=== PATIENT | female | born 1940 | race Caucasian/White ===

== ENCOUNTER 2017-09-03 13:05 | Emergency (ER) | payer MEDICARE, BC ==
[2017-09-03 13:29] VITALS: BP 146/65
[2017-09-03] MEDS ORDERED: Ondansetron 4 MG/2 ML SDV IVPUSH ONE (13:32)
[2017-09-03] MEDS ORDERED: Sodium Chloride 0.9% 1,000 ML IV ONE (13:32)
--- NOTE | 2017-09-03 13:43 | EDM.PDOC ---
ED HPI GENERAL MEDICAL PROBLEM - General Chief Complaint: Gastrointestinal Problem Stated Complaint: VOMITING Time Seen by Provider: 09/03/17 13:32 Source of Information: Reports: Patient History Limitations: Reports: No Limitations - History of Present Illness INITIAL COMMENTS - FREE TEXT/NARRATIVE: 77 YO WF presents to ER complaining of intractable vomiting which began 3 hours ago. Pt reports she woke this am feeling well, and had some breakfast. Pt states so after she began to feel nauseated and started to vomit. Pt unable to hold down any fluids at this time. Pt denies any abdominal pain, no chest pain, no shortness of breath, no dizziness. Pt denies any sick contacts, no fever/ chills. Onset: Today Duration: Hour(s): (3) Location: Reports: Generalized Severity: Mild Improves with: Reports: None Worsens with: Reports: Eating Associated Symptoms: Reports: Nausea/Vomiting. Denies: Chest Pain, Fever/Chills , Shortness of Breath, Syncope - Related Data Allergies Allergy/AdvReac Type Severity Reaction Status Date / Time ciprofloxacin [From Cipro] Allergy Headache Verified 09/03/17 13:29 ciprofloxacin HCl Allergy Headache Verified 09/03/17 13:29 [From Cipro] Home Meds: Home Meds Aspirin 1 tab PO DAILY 11/01/15 [History] Simvastatin [Zocor] 40 mg PO DAILY 11/01/15 [History] amLODIPine [Norvasc] 5 mg PO DAILY 11/01/15 [History] Potassium Chloride [Klor-Con M20] 20 meq PO DAILY #14 tab.er.prt 11/03/15 [Rx] Cephalexin [Keflex] 500 mg PO Q6HR #28 cap 09/03/17 [Rx] Ondansetron [Zofran ODT] 4 mg PO Q8H #10 tab.dis 09/03/17 [Rx] Past Medical History HEENT History: Reports: Hard of Hearing, Impaired Vision Cardiovascular History: Reports: High Cholesterol, Other (See Below) Other Cardiovascular History: carotid artery stenosis Gastrointestinal History: Reports: None VP PROJECT History: Reports: , Spontaneous - Infectious Disease History Infectious Disease History: Reports: Chicken Pox, Measles, Mumps, Pertussis ( Whooping Cough), Rubella - Past Surgical History Female Surgical History: Reports: D&C, Hysterectomy, Salpingo-Oophorectomy, Tubal Ligation Social & Family History - Tobacco Use Smoking Status *Q: Never Smoker Second Hand Smoke Exposure: No - Alcohol Use Days Per Week of Alcohol Use: 1 Number of Drinks Per Day: 1 Total Drinks Per Week: 1 - Recreational Drug Use Recreational Drug Use: No - Living Situation & Occupation Living situation: Reports: Occupation: Retired ED ROS GENERAL - Review of Systems Review Of Systems: See Below Constitutional: Reports: No Symptoms HEENT: Reports: No Symptoms Respiratory: Reports: No Symptoms Cardiovascular: Reports: No Symptoms Endocrine: Reports: No Symptoms GI/Abdominal: Reports: Nausea, Vomiting : Reports: No Symptoms Musculoskeletal: Reports: No Symptoms Skin: Reports: No Symptoms Neurological: Reports: No Symptoms Psychiatric: Reports: No Symptoms Hematologic/Lymphatic: Reports: No Symptoms Immunologic: Reports: No Symptoms ED EXAM, GENERAL - Physical Exam Exam: See Below Exam Limited By: No Limitations General Appearance: Alert, WD/WN, No Apparent Distress Head: Atraumatic, Normocephalic Neck: Normal Inspection, Supple, Non-Tender, Full Range of Motion Respiratory/Chest: No Respiratory Distress, Lungs Clear, Normal Breath Sounds, No Accessory Muscle Use, Chest Non-Tender Cardiovascular: Normal Peripheral Pulses, Regular Rate, Rhythm, No Edema, No Gallop, No JVD, No Murmur, No Rub GI/Abdominal: Normal Bowel Sounds, Soft, Non-Tender, No Organomegaly, No Distention, No Abnormal Bruit, No Mass Back Exam: Normal Inspection, Full Range of Motion, NT Extremities: Normal Inspection, Normal Range of Motion, Non-Tender, Normal Capillary Refill, No Pedal Edema Neurological: Alert, Oriented, CN II-XII Intact, Normal Cognition, Normal Gait, Normal Reflexes, No Motor/Sensory Deficits Psychiatric: Normal Affect, Normal Mood Skin Exam: Warm, Dry, Intact, Normal Color, No Rash Lymphatic: No Adenopathy EKG INTERPRETATION EKG Date: 09/03/17 Time: 13:58 Rhythm: NSR Rate (Beats/Min): 68 [place]: Normal P-Wave: Present QRS: Normal ST-T: Normal QT: Normal Comparison: NA - No Prior EKG Course - Vital Signs Last Recorded V/S: Last Vital Signs Temp 35.8 C 09/03/17 13:25 Pulse 86 09/03/17 13:25 Resp 18 09/03/17 13:25 BP 146/65 H 09/03/17 13:25 Pulse Ox 96 09/03/17 13:25 - Orders/Labs/Meds Orders: Active Orders 24 hr Category Date Time Status EKG Documentation Completion [RC] ASDIRECTED Care 09/03/17 13:32 Ordered Sodium Chloride 0.9% @ 999 MLS/HR (1000ml) Med 09/03/17 13:32 Ordered Sodium Chloride 0.9% [Normal Saline] 1,000 ml IV .BOLUS EKG 12 Lead [EK] Routine Ther 09/03/17 13:32 Ordered Medication Orders Sodium Chloride (Normal Saline) 1,000 mls @ 999 mls/hr IV .BOLUS ONE Stop: 09/03/17 14:32 Last Admin: 09/03/17 13:48 Dose: 999 mls/hr Labs: Laboratory Tests 09/03/17 09/03/17 09/03/17 Range/Units 13:10 13:10 13:40 WBC 12.2 H (5.0-10.0) 10^3/uL RBC 4.61 (3.80-5.50) 10^6/uL Hgb 13.1 (12.0-16.0) g/dL Hct 41.2 (37.0-47.0) % MCV 89.4 (82.0-92.0) fL MCH 28.5 (27.0-31.0) pg MCHC 31.9 L (32.0-36.0) g/dL RDW 12.9 (11.5-14.5) % Plt Count 211 (150-300) 10^3/uL MPV 9.4 (7.4-10.4) fL Neut % (Auto) 89.9 H (50.0-70.0) % Lymph % (Auto) 7.4 L (20.0-40.0) % [place] % (Auto) 1.9 L (2.0-8.0) % Eos % (Auto) 0.2 L (1.0-3.0) % Baso % (Auto) 0.6 (0.0-1.0) % Neut # (Auto) 11.0 H (2.5-7.0) 10^3/uL Lymph # (Auto) 0.9 L (1.0-4.0) 10^3/uL [place] # (Auto) 0.2 (0.1-0.8) 10^3/uL Eos # (Auto) 0.0 L (0.1-0.3) 10^3/uL Baso # (Auto) 0.1 (0.0-0.1) 10^3/uL Sodium 142 (136-145) mmol/L Potassium 3.3 (3.3-5.3) mmol/L Chloride 105 (98-115) mmol/L Carbon Dioxide 24.0 (21.0-32.0) mmol/L BUN 13 (6-25) mg/dL Creatinine 0.57 (0.51-1.17) mg/dL Est Cr Clr Drug Dosing 69.11 mL/min Estimated GFR (MDRD) > 60 mL/min Glucose 151 H (70-110) mg/dL Calcium 8.7 (8.7-10.3) mg/dL Total Bilirubin 0.3 (0.2-1.0) mg/dL AST 18 (15-37) U/L ALT 17 (12-78) U/L Alkaline Phosphatase 102 (46-116) IU/L Total Protein 8.1 (6.4-8.2) g/dL Albumin 3.60 (3.00-4.80) g/dL Lipase 60 L (73-393) U/L Specimen Type Urinvoid Urine Color Light yellow (YELLOW) Urine Appearance Cloudy H (CLEAR) Urine pH 7.5 (5.0-9.0) Ur Specific [place] 1.020 (1.005-1.030) Urine Protein Negative (NEGATIVE) mg/dL Urine Glucose (UA) Negative (NEGATIVE) mg/dL Urine Ketones 40 H (NEGATIVE) mg/dL Urine Occult Blood Negative (NEGATIVE) Urine Nitrite Negative (NEGATIVE) Urine Bilirubin Negative (NEGATIVE) Urine Urobilinogen 0.2 (0.2-1.0) E.U./dL Ur Leukocyte Esterase Negative (NEGATIVE) Urine RBC 0-5 /HPF Urine WBC 0-5 /HPF Ur Epithelial Cells Few /LPF Amorphous Sediment Many H (0/HPF) /HPF Urine Bacteria Moderate H (NONE TO FEW) /HPF Meds: Medications Generic Name Dose Route Start Last Admin Trade Name Freq PRN Reason Stop Dose Admin Sodium Chloride 1,000 mls @ 999 mls/hr 09/03/17 13:32 09/03/17 13:48 Normal Saline IV 09/03/17 14:32 999 mls/hr .BOLUS ONE Administration Discontinued Medications Generic Name Dose Route Start Last Admin Trade Name Ran PRN Reason Stop Dose Admin Ondansetron HCl 4 mg 09/03/17 13:32 09/03/17 13:48 Zofran IVPUSH 09/03/17 13:33 4 mg ONETIME ONE Administration Departure - Departure Time of Disposition: 14:32 Disposition: Home, Self-Care 01 Condition: Good Clinical Impression: Vomiting, UTI, Urinary tract infectious disease - Discharge Information Prescriptions: Cephalexin [Keflex] 500 mg PO Q6HR #28 cap Ondansetron [Zofran ODT] 4 mg PO Q8H #10 tab.dis Instructions: Nausea and Vomiting, Adult, [id number], Urinary Tract Infection , Adult Referrals: Steve Dawson MD [Primary Care Provider] - Forms: ED Department Discharge - My Orders Last 24 Hours: My Active Orders 09/03/17 13:32 EKG Documentation Completion [RC] ASDIRECTED Sodium Chloride 0.9% @ 999 MLS/HR (1000ml) Sodium Chloride 0.9% [Normal Saline] 1,000 ml IV .BOLUS EKG 12 Lead [EK] Routine - Assessment/Plan Last 24 Hours: My Active Orders 09/03/17 13:32 EKG Documentation Completion [RC] ASDIRECTED Sodium Chloride 0.9% @ 999 MLS/HR (1000ml) Sodium Chloride 0.9% [Normal Saline] 1,000 ml IV .BOLUS EKG 12 Lead [EK] Routine Assessment:: 1. vomiting 2. urinary tract infection Plan: 1. zofran 4mg ODT Q8 PRN vomiting 2. keflex 500mg PO Q6 x 7 days 3. plenty of fluids 4. follow up in clinic for recheck 5. return to ER for worsening symptoms
[2017-09-03 14:14] LABS: CHLORIDE,CL 105 mmol/L (98-115); SODIUM,NA 142 mmol/L (136-145)
[2017-09-03] MEDS ORDERED: Ondansetron 4 MG Tab.DIS PO PRN (14:34)
[2017-09-03] MEDS ORDERED: Cephalexin 250 MG Cap PO SCH (14:45)
== END 2017-09-03 15:00 | disposition home or self-care (01) ==
LOC: KA.ED 13:05
DX: N39.0 Urinary tract infection, site not specified (principal); R11.2 Nausea with vomiting, unspecified; Z88.8 Allergy status to other drugs, medicaments and biological substances; E78.00 Pure hypercholesterolemia, unspecified
CPT/HCPCS: 80053; 81001; 83690; 85025; 93005; 96361; 96374; 99283; J2405; J7030; A9270-GY

== ENCOUNTER 2020-05-29 08:50 | Emergency (ER) | payer MEDICARE, BC ==
[2020-05-29] MEDS ORDERED: Sodium Chloride 0.9% 1,000 ML ONE (09:32)
[2020-05-29] MEDS ORDERED: Ondansetron 4 MG/2 ML SDV ONE (09:33)
--- NOTE | 2020-05-29 09:44 | CR ---
[id number] RAD/RAD Chest PA or AP 1V EXAM: RAD Chest PA or AP 1V INDICATION: LOW OXYGEN SATS. COMPARISON: None. DISCUSSION: Prominent appearance of the right hilum, nonspecific. Differential diagnosis includes lymphadenopathy versus central vascular congestion. 12 mm left lung base nodule. In addition there is streaky parenchymal opacity in the left lung base. Findings are nonspecific. Contrast-enhanced CT examination of the chest is recommended for further evaluation. If there is contraindication to intravenous iodinated contrast, noncontrast chest CT would also be of benefit. IMPRESSION: As above. En Alva MD 05/29/20 0913 Thank you for allowing us to participate in the care of your patient.
[2020-05-29] MEDS ORDERED: Sodium Chloride 0.9% 1,000 ML IV SCH (09:45)
[2020-05-29] MEDS ORDERED: Ondansetron 4 MG/2 ML SDV IVPUSH ONE (09:45)
--- NOTE | 2020-05-29 09:46 | EDM.PDOC ---
ED HPI GENERAL MEDICAL PROBLEM - General Time Seen by Provider: 05/29/20 09:21 Source of Information: Reports: Patient, Family History Limitations: Reports: No Limitations - History of Present Illness INITIAL COMMENTS - FREE TEXT/NARRATIVE: arrive to the emergency room by her daughters who had a less than 60 second syncopal episode at home. She was diagnosed with Covid-19 last week and she was admitted to the [place] covid Unit on Monday and was discharged on Monday. She was discharged home in care of her daughters. She has been weak has had some weight loss mild nonproductive cough, some shortness of breath with exertion. She does not have any chest pain or acute respiratory distress this time. Her syncopal episode lasted less than 60 seconds (per daughter) which they were able to get her stand back up and put her into a vehicle. She was coming back from the bathroom, she denies bearing down there, she got up, felt increased weakness and her gait was unsteady as where she fell down in the hallway. She does not take any anticoagulants. There is no signs of trauma. - Related Data Allergies Allergy/AdvReac Type Severity Reaction Status Date / Time ciprofloxacin [From Cipro] Allergy Headache Verified 05/29/20 09:15 ciprofloxacin HCl Allergy Headache Verified 05/29/20 09:15 [From Cipro] Home Meds: Home Meds Aspirin 1 tab PO DAILY 11/01/15 [History] Simvastatin [Zocor] 40 mg PO DAILY 11/01/15 [History] amLODIPine [Norvasc] 5 mg PO DAILY 11/01/15 [History] Past Medical History HEENT History: Reports: Hard of Hearing, Impaired Vision Cardiovascular History: Reports: High Cholesterol, Other (See Below) Other Cardiovascular History: carotid artery stenosis Gastrointestinal History: Reports: None Other Gastrointestinal History: current N/V [employer]MENT [employer] History: Reports: , Spontaneous - Infectious Disease History Infectious Disease History: Reports: Chicken Pox, Measles, Mumps, Pertussis (Whooping Cough), Rubella - Past Surgical History Female Surgical History: Reports: D&C, Hysterectomy, Salpingo-Oophorectomy, Tubal Ligation Social & Family History - Family History Family Medical History: Noncontributory - Caffeine Use Caffeine Use: Reports: Coffee - Living Situation & Occupation Living situation: Reports: Occupation: Retired ED ROS GENERAL - Review of Systems Review Of Systems: See Below Constitutional: Reports: Chills, Malaise, Weakness, Fatigue, Weight Loss. De nies: Fever HEENT: Denies: Ear Pain, Rhinitis, Throat Pain Respiratory: Reports: Cough. Denies: Shortness of Breath Cardiovascular: Reports: Dyspnea on Exertion, Syncope, Other (Syncopal episode prior to arrival). Denies: Chest Pain GI/Abdominal: Reports: Nausea. Denies: Abdominal Pain, Diarrhea, Vomiting Musculoskeletal: Reports: Other (Myalgias) Neurological: Reports: Dizziness. Denies: Confusion, Headache, Numbness, Change in Speech Psychiatric: Reports: No Symptoms Hematologic/Lymphatic: Reports: No Symptoms ED EXAM, GENERAL - Physical Exam Exam: See Below Exam Limited By: No Limitations General Appearance: Alert, WD/WN, No Apparent Distress Eye Exam: Bilateral Eye: EOMI, PERRL Ears: Normal TMs Nose: Normal Inspection, Normal Mucosa Throat/Mouth: Normal Oropharynx, Other (Dry mucous membranes) Head: Atraumatic, Normocephalic. No: Facial Swelling, Facial Tenderness Neck: Normal Inspection, Supple, Non-Tender. No: Lymphadenopathy (L), Lymphadenopathy (R) Respiratory/Chest: No Respiratory Distress, Lungs Clear, Normal Breath Sounds Cardiovascular: Normal Peripheral Pulses, Regular Rate, Rhythm, No Murmur GI/Abdominal: Normal Bowel Sounds, Soft, Non-Tender Back Exam: Normal Inspection, Full Range of Motion Extremities: Normal Inspection, Non-Tender, No Pedal Edema Neurological: Alert, Oriented, CN II-XII Intact, No Motor/Sensory Deficits Psychiatric: Normal Affect, Normal Mood Skin Exam: Warm, Dry, Intact, Pallor Lymphatic: No Adenopathy EKG INTERPRETATION EKG Date: 05/29/20 Time: 09:25 Rhythm: NSR [place]: Normal P-Wave: Present QRS: Normal ST-T: Normal QT: Normal Course - Vital Signs Last Recorded V/S: Last Vital Signs Temp 98.1 F 05/29/20 09:15 Pulse 66 05/29/20 11:17 Resp 22 H 05/29/20 11:17 BP 135/54 L 05/29/20 11:17 Pulse Ox 93 L 05/29/20 11:17 - Orders/Labs/Meds Orders: Active Orders 24 hr Category Date Time Status EKG Documentation Completion [RC] ASDIRECTED Care 05/29/20 09:04 Active Sodium Chloride 0.9% [Normal Saline] 1,000 ml Med 05/29/20 09:45 Active IV ASDIRECTED EKG 12 Lead [EK] Stat Ther 05/29/20 09:04 Ordered Medication Orders Sodium Chloride (Normal Saline) 1,000 mls @ 125 mls/hr IV ASDIRECTED BETINA Last Admin: 05/29/20 09:45 Dose: 500 mls/hr Documented by: PHILLIP Labs: Laboratory Tests 05/29/20 05/29/20 05/29/20 Range/Units 09:25 09:25 09:25 WBC 8.23 (5.00-10.00) 10^3/uL RBC 4.03 (3.80-5.50) 10^6/uL Hgb 11.9 L (12.0-16.0) g/dL Hct 36.4 L (37.0-47.0) % MCV 90.3 (82.0-92.0) fL MCH 29.5 (27.0-31.0) pg MCHC 32.7 (32.0-36.0) g/dL RDW 13.4 (11.5-14.5) % Plt Count 138 L (150-400) 10^3/uL MPV 10.9 H (7.4-10.4) fL Immature Gran % (Auto) 0.2 (0.0-5.0) % Neut % (Auto) 81.4 H (50.0-70.0) % Lymph % (Auto) 14.8 L (20.0-40.0) % [place] % (Auto) 3.6 (2.0-8.0) % Eos % (Auto) 0.0 L (1.0-3.0) % Baso % (Auto) 0.0 (0.0-1.0) % Neut # (Auto) 6.69 (2.50-7.00) 10^3/uL Lymph # (Auto) 1.22 (1.00-4.00) 10^3/uL [place] # (Auto) 0.30 (0.10-0.80) 10^3/uL Eos # (Auto) 0.00 L (0.10-0.30) 10^3/uL Baso # (Auto) 0.00 (0.00-0.10) 10^3/uL Immature Gran # (Auto) 0.02 (0.00-0.50) 10^3/uL POC ABG pH (7.35-7.45) pH POC ABG pCO2 (35-48) mmHg POC ABG pO2 (83-108) mmHg POC ABG HCO3 (21-28) mmol/L ABG O2 Sat (Calculated) (94-98) % POC ABG Base Excess (-2-3) mmol/L Sodium 139 (136-145) mmol/L Potassium 3.1 L (3.3-5.3) mmol/L Chloride 102 (98-115) mmol/L Carbon Dioxide 23.3 (21.0-32.0) mmol/L Anion Gap 16.8 H (5-15) mmol/L BUN 18 (6-25) mg/dL Creatinine 0.57 (0.51-1.17) mg/dL Est Cr Clr Drug Dosing TNP Estimated GFR (MDRD) > 60 mL/min Glucose 106 H (75 - 99) mg/dL Lactic Acid 0.9 (0.4-2.0) mmol/L Calcium 7.5 L (8.7-10.3) mg/dL Total Bilirubin 0.5 (0.2-1.0) mg/dL AST 24 (15-37) U/L ALT 22 (12-78) U/L Alkaline Phosphatase 59 (46-116) IU/L Total Protein 6.4 (6.4-8.2) g/dL Albumin 2.57 L (3.00-4.80) g/dL 05/29/20 Range/Units 09:35 WBC (5.00-10.00) 10^3/uL RBC (3.80-5.50) 10^6/uL Hgb (12.0-16.0) g/dL Hct (37.0-47.0) % MCV (82.0-92.0) fL MCH (27.0-31.0) pg MCHC (32.0-36.0) g/dL RDW (11.5-14.5) % Plt Count (150-400) 10^3/uL MPV (7.4-10.4) fL Immature Gran % (Auto) (0.0-5.0) % Neut % (Auto) (50.0-70.0) % Lymph % (Auto) (20.0-40.0) % [place] % (Auto) (2.0-8.0) % Eos % (Auto) (1.0-3.0) % Baso % (Auto) (0.0-1.0) % Neut # (Auto) (2.50-7.00) 10^3/uL Lymph # (Auto) (1.00-4.00) 10^3/uL [place] # (Auto) (0.10-0.80) 10^3/uL Eos # (Auto) (0.10-0.30) 10^3/uL Baso # (Auto) (0.00-0.10) 10^3/uL Immature Gran # (Auto) (0.00-0.50) 10^3/uL POC ABG pH 7.5 H (7.35-7.45) pH POC ABG pCO2 34 L (35-48) mmHg POC ABG pO2 63 L (83-108) mmHg POC ABG HCO3 24 (21-28) mmol/L ABG O2 Sat (Calculated) 93.1 L (94-98) % POC ABG Base Excess -0 (-2-3) mmol/L Sodium (136-145) mmol/L Potassium (3.3-5.3) mmol/L Chloride (98-115) mmol/L Carbon Dioxide (21.0-32.0) mmol/L Anion Gap (5-15) mmol/L BUN (6-25) mg/dL Creatinine (0.51-1.17) mg/dL Est Cr Clr Drug Dosing Estimated GFR (MDRD) mL/min Glucose (75 - 99) mg/dL Lactic Acid (0.4-2.0) mmol/L Calcium (8.7-10.3) mg/dL Total Bilirubin (0.2-1.0) mg/dL AST (15-37) U/L ALT (12-78) U/L Alkaline Phosphatase (46-116) IU/L Total Protein (6.4-8.2) g/dL Albumin (3.00-4.80) g/dL Meds: Medications Generic Name Dose Route Start Last Admin Trade Name Freq PRN Reason Stop Dose Admin Sodium Chloride 1,000 mls @ 125 mls/hr 05/29/20 09:45 05/29/20 09:45 Normal Saline IV 500 mls/hr ASDIRECTED BETINA Administration Discontinued Medications Generic Name Dose Route Start Last Admin Trade Name Ran PRN Reason Stop Dose Admin Sodium Chloride Confirm 05/29/20 09:32 05/29/20 10:14 Normal Saline Administered 05/29/20 09:33 Not Given Dose 1,000 mls @ as directed .ROUTE .STK-MED ONE Ondansetron HCl Confirm 05/29/20 09:33 05/29/20 10:15 Zofran Administered 05/29/20 09:34 Not Given Dose 4 mg .ROUTE .STK-MED ONE Ondansetron HCl 4 mg 05/29/20 09:45 05/29/20 09:45 Zofran IVPUSH 05/29/20 09:46 4 mg ONETIME ONE Administration - Re-Assessments/Exams Free Text/Narrative Re-Assessment/Exam: 05/29/20 10:07 Patient was placed on room air she immediately dropped to 82% at rest. Patient placed on 2 L oxygen her saturations remained 93 to 94% on 2 L NC. Patient is resting comfortably nausea is improved after Zofran she is got a 500 ml bolus given fluids vitals stable patient's pale weak alert and orientated no syncopal episode since arrival. I did speak the on-call [facility] provider Hugo Reece he is here in the hospital right now is going to come over to evaluate the patient. Family were updated who are waiting in the parking lot. 05/29/20 10:37 Waiting on bed placement patient stable resting comfortably oxygen saturations 93% on 2 L of oxygen. Spoke with family they feel more comfortable having her admitted versus going home on home oxygen. I discussed with the on-call provider. Just waiting on getting her placed into a [facility] or [facility] in [place]. That is yet to be decided. 05/29/20 11:12 Spoke with on-call hospitalist Dr. PEREZ, report was given, he accepted care. EMS were called patient transferred Covwi- precautions to [facility]. Family was called and updated. VSS. 05/29/20 11:22 Patient is on 2 L nasal cannula 94% pulse 60 blood pressure 135/54. Patient is resting comfortably fluids at 125 mils an hour. Family were called and updated waiting on a bed at [facility] once a bed is obtained patient be transferred via EMS. Departure - Departure Time of Disposition: 11:14 Disposition: DC/Tfer to [facility] 02 Condition: Fair Clinical Impression: Hypoxia, COVID-19 Syncope Qualifiers: Syncope type: unspecified Qualified Code(s): R55 - Syncope and collapse - Discharge Information *PRESCRIPTION DRUG MONITORING PROGRAM REVIEWED*: No *COPY OF PRESCRIPTION DRUG MONITORING REPORT IN PATIENT SYDNEE: No Referrals: PCP,Unknown [Primary Care Provider] - Sepsis Event Note (ED) - Evaluation Sepsis Screening Result: No Definite Risk - Focused Exam Vital Signs: Vital Signs Temp Pulse Resp BP Pulse Ox 05/29/20 11:17 66 22 H 135/54 L 93 L 05/29/20 10:30 73 24 H 124/60 92 L 05/29/20 10:15 68 22 H 128/56 L 94 L 05/29/20 10:00 64 21 H 129/63 93 L 05/29/20 09:45 65 25 H 140/75 86 L 05/29/20 09:30 77 22 H 140/63 92 L 05/29/20 09:15 98.1 F 72 24 H 130/58 L 88 L - My Orders Last 24 Hours: My Active Orders 05/29/20 09:04 EKG Documentation Completion [RC] ASDIRECTED EKG 12 Lead [EK] Stat 05/29/20 09:45 Sodium Chloride 0.9% [Normal Saline] 1,000 ml IV ASDIRECTED - Assessment/Plan Last 24 Hours: My Active Orders 05/29/20 09:04 EKG Documentation Completion [RC] ASDIRECTED EKG 12 Lead [EK] Stat 05/29/20 09:45 Sodium Chloride 0.9% [Normal Saline] 1,000 ml IV ASDIRECTED
[2020-05-29 10:20] LABS: ANION GAP 16.8 mmol/L (5-15); CHLORIDE,CL 102 mmol/L (98-115); SODIUM,NA 139 mmol/L (136-145)
[2020-05-29 11:34] VITALS: BP 135/49; PULSE 68
== END 2020-05-29 12:10 ==
LOC: KA.ED 08:50
DX: R55 Syncope and collapse (principal); U07.1 COVID-19; R09.02 Hypoxemia; E78.00 Pure hypercholesterolemia, unspecified; Z79.899 Other long term (current) drug therapy; Z79.82 Long term (current) use of aspirin; Z88.1 Allergy status to other antibiotic agents
CPT/HCPCS: 71045; 80053; 82803; 83605; 85025; 93005; 96361; 96374; 99284; 99285-25; J2405; J7030

== ENCOUNTER 2021-11-22 20:27 | Emergency (ER) | payer BC, MEDICARE ==
[2021-11-22 21:13] LABS: ANION GAP 14.2 mmol/L (5-15); CHLORIDE,CL 101 mmol/L (98-107); SODIUM,NA 137 mmol/L (136-145)
[2021-11-22 22:07] LABS: RESPIRATORY SYNCYTIAL VIR NAA NEGATIVE (NEGATIVE)
[2021-11-22 22:12] LABS: CORONAVIRUS COVID-19 NAA NEGATIVE (NEGATIVE)
[2021-11-22] MEDS: Iopamidol 755 Mg/ML 75 ML Bottle IVPUSH ONE (22:15)
[2021-11-22] MEDS: Sodium Chloride 0.9% 100 ML IV SCH (22:15)
[2021-11-22 22:53] VITALS: BP 137/62; PULSE 77
[2021-11-22] MEDS: Benzonatate 100 MG Cap PO ONE (23:40)
[2021-11-22] MEDS: Codeine/guaiFENesin 10-100 MG/5 ML Syrup 5 ML Cup PO ONE (23:40)
== END 2021-11-22 23:45 | disposition home or self-care (01) ==
LOC: KA.ED 20:27
DX: U07.1 COVID-19 (principal); R91.1 Solitary pulmonary nodule; M89.9 Disorder of bone, unspecified; E78.00 Pure hypercholesterolemia, unspecified; Z86.16 Personal history of COVID-19; Z88.1 Allergy status to other antibiotic agents; Z88.8 Allergy status to other drugs, medicaments and biological substances; Z79.82 Long term (current) use of aspirin; Z79.899 Other long term (current) drug therapy
CPT/HCPCS: 0241U; 36415; 71275; 80053; 83880; 84484; 85025; 85379; 93005; 93010; 99284; 99285-25; A9270-GY; Q9967